=== PATIENT | female | born 1960 | race Caucasian/White ===

== ENCOUNTER 2016-12-13 22:45 | Emergency (ER) | payer OTHER, SELFPAY ==
[~2016-12-13 22:45] MED LIST: ALBUTEROL IN200 PUFF INH; ALBUTEROL0.63 MG/3 INH; ALBUTEROL2.5 MG/3 M INH; CARAFATE1 GM PO; CEFDINIR300 MG PO; DOXYCYCLINE HY100 MG PO; DULERA 200 MCG8.8 GM INH; DUONEB 2.5-0.5MG3 ML INH; DUONEB 2.5-0.5MG3 ML NEB; FLEXERIL10 MG PO; HCTZ25 MG PO; HYCODAN PO; HYDROCHLOROTH12.5 M1 PO; IBUPROFEN800 MG PO; LEVAQUIN500 MG PO; LEVOFLOXACIN750 MG PO; MAALOX PLUS30 ML PO; MUCINEX600 MG PO; NICODERM 14MG PA1 EA TD; PREDNISONE10 M1 PO; PREDNISONE5 MG PO; PRILOSEC OTC20 MG PO; PRILOSEC40 MG PO; SINGULAIR10 MG PO; SPIRIVA HANDIH90 MCG IH; SPIRIVA18 MCG INH; SULFAMETHOXAZO1 EACH PO; SYMBICORT 16010.2 GM INH; TYLENOL325 M1 PO; ZITHROMAX250 MG PO
[2016-12-14 00:04] LABS: BASO # 0.1 10_X3_uL (0.0-0.1); BASO % 0.8 % (0.1-1.2); EOS # 1.5 10_X3_uL (0.0-0.4); EOS % 14.2 % (0.7-5.8); GRAN # 5.4 10_X3_uL (1.6-6.1); GRAN % 50.4 % (34.0-71.1); HEMATOCRIT 41.9 % (34-45); HEMOGLOBIN 13.5 g/dL (11.2-15.7); LYMPH # 2.9 10_X3_uL (1.2-3.7); LYMPH % 26.6 % (19.3-51.7); MEAN CORPUSCULAR HGB CONC 32.2 g/dL (32.0-36.0); MEAN CORPUSCULAR VOLUME 89.9 fL (79-95); MEAN PLATELET VOLUME 9.7 fl (7.5-11.5); MONO # 0.9 10_X3_uL (0.2-0.9); PLATELET COUNT 242 x10_3/uL (182-369); RED BLOOD COUNT 4.66 x10_6/uL (3.9-5.2); RED CELL DISTRIBUTION WIDTH 13.7 % (11.7-14.4); WHITE BLOOD COUNT 10.8 x10_3/uL (4.0-10.0)
== END 2016-12-14 00:56 | disposition home or self-care (01) ==
LOC: ER 22:45
PROVIDERS: Emergency Medicine
DX: J44.1 Chronic obstructive pulmonary disease with (acute) exacerbation (principal); Z87.442 Personal history of urinary calculi; R51 Headache; R05 Cough; Z88.0 Allergy status to penicillin; Z79.899 Other long term (current) drug therapy
CPT/HCPCS: 36415; 71020; 85025; 87400; 94664; 96372; 99283-25; 99284; J2930

== ENCOUNTER 2017-02-01 14:07 | Emergency (ER) | payer OTHER, SELFPAY | END 2017-02-01 15:19 | disposition home or self-care (01) | LOC: ER 14:07 | DX: R91.1 Solitary pulmonary nodule (principal); J44.9 Chronic obstructive pulmonary disease, unspecified; J45.998 Other asthma; Z88.0 Allergy status to penicillin; Z79.899 Other long term (current) drug therapy | CPT/HCPCS: 71010; 94664; 99284-25 ==